=== PATIENT | female | born 1940 | race Caucasian/White ===

== ENCOUNTER → 2016-10-18 | Outpatient (CLI) | payer MEDICARE ==
[~2016-10-18] MED LIST: ASPIRIN81 M1 PO; ASPIRIN81 M2 PO; CALTRATE PLUS T1 TA1 PO; CEFTIN PO; CELEBREX PO; COMBIVENT U/D3 M2 INH; COMBIVENT U/D3 M3 INH; COMBIVENT14.7 GM INH; COREG6.25 MG PO; Calcium PO; LEVAQUIN PO; LIPITOR PO; LISINOPRIL2.5 MG PO; LISINOPRIL5 MG PO; MEDROL DOSEPAK4 MG PO; METHOTREXATE2.5 MG PO; MULTI-VITAMIN1 EAC1 PO; MULTIVITAMIN1 UDCAP PO; REMICADE IV; SYMBICORT INH; VITAMIN D1000 UNI1 PO; ZESTRIL5 MG PO
[2016-10-18 10:51] LABS: ARTERIAL BLD GAS O2 SATURATION 86.5 % (90.0-100.0); ARTERIAL BLOOD GAS CARBOXY HB 7.7 %sat (0.0-9.0); ARTERIAL BLOOD GAS HCO3 28.3 mmol/L; ARTERIAL BLOOD GAS MET HB 0.3 %sat (0.0-2.0); ARTERIAL BLOOD GAS PCO2 47.3 mmHg (35.0-45.0); ARTERIAL BLOOD GAS pH 7.385 (7.350-7.450)
[2016-10-18 10:52] LABS: ARTERIAL BLOOD GAS ALLEN TEST NORMAL; ARTERIAL BLOOD GAS ART SITE RIGHT RADIAL; ARTERIAL BLOOD GAS PO2 66.9 mmHg (80.0-100); ARTERIAL DRAW? YES
== END | disposition home or self-care (01) ==
LOC: CLAB 10:03
PROVIDERS: Internal Medicine
DX: D58.2 Other hemoglobinopathies (principal)
CPT/HCPCS: 36600; 82803